=== PATIENT | male | born 1985 | race Caucasian/White ===

== ENCOUNTER 2016-09-23 04:12 | Inpatient (IN) | payer OTHER ==
[~2016-09-23] VITALS: Ht 177.8 cm; Wt 87.1 kg
[~2016-09-23 04:12] MED LIST: CEPALOZ SUCK-ON; IBUP-232 PO; PENI500T PO
[2016-09-23 04:21] VITALS: BP 137/90; PULSE 123
[2016-09-23] MEDS ORDERED: HALOPERIDOL LACTATE 5 MG/ML AMP ONE (04:23)
[2016-09-23] MEDS ORDERED: diphenhydrAMINE HCL 50 MG/ML VIAL ONE (04:23)
[2016-09-23] MEDS ORDERED: LORazepam 2 MG/ML VIAL ONE (04:24)
[2016-09-23 04:39] VITALS: PULSE 127
[2016-09-23] MEDS ORDERED: HALOPERIDOL LACTATE 5 MG/ML AMP IV ONE (04:45)
[2016-09-23] MEDS ORDERED: LORazepam 2 MG/ML VIAL IV PUSH ONE (04:45)
[2016-09-23] MEDS ORDERED: diphenhydrAMINE HCL 50 MG/ML VIAL IV PUSH ONE (04:45)
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
[2016-09-23 05:54] LABS: AUTOMATED NEUTROPHIL # 4.8 TH/MM3 (1.8-7.7); BASOPHIL # 0.1 TH/MM3 (0-0.2); BASOPHIL % 0.9 % (0.0-2.0); EOSINOPHIL % 0.5 % (0.0-4.0); HEMO FLAGS DIFF FINAL; LYMPH % 29.1 % (9.0-44.0); LYMPHOCYTE # 2.3 TH/MM3 (1.0-4.8); MEAN CELL VOLUME 91.7 FL (80.0-100.0); MEAN CORPUSCULAR HEMOGLOBIN 32.4 PG (27.0-34.0); MEAN CORPUSCULAR HGB CONC 35.4 % (32.0-36.0); MONO % 7.8 % (0.0-8.0); NEUT % 61.7 % (16.0-70.0); PLATELET COUNT 276 TH/MM3 (150-450); RED BLOOD COUNT 4.47 MIL/MM3 (4.50-5.90); RED CELL DISTRIBUTION WIDTH 13.2 % (11.6-17.2); WHITE BLOOD COUNT 7.8 TH/MM3 (4.0-11.0)
[2016-09-23 06:07] LABS: ALT (GPT) 38 U/L (12-78); ANION GAP 13 MEQ/L (5-15); AST (GOT) 37 U/L (15-37); BICARBONATE 21.8 MEQ/L (21.0-32.0); CHLORIDE 108 MEQ/L (98-107); GLOMERULAR FILTRATION RATE 78 ML/MIN (>89); POTASSIUM 3.1 MEQ/L (3.5-5.1); SODIUM (NA) 143 MEQ/L (136-145)
[2016-09-23 06:11] LABS: ALKALINE PHOSPHATASE 66 U/L (45-117); BLOOD UREA NITROGEN 16 MG/DL (7-18); TOTAL BILIRUBIN ADULT 0.4 MG/DL (0.2-1.0)
[2016-09-23 07:07] LABS: AMPHETAMINE, URINE NEG (NEG); BARBITURATES, URINE NEG (NEG); COCAINE, URINE NEG (NEG)
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
[2016-09-23] MEDS ORDERED: MAGNESIUM HYDROXIDE SUSP 30 ML CUP PO PRN (11:30)
[2016-09-23] MEDS ORDERED: ACETAMINOPHEN 325 MG TAB PO PRN (11:30)
[2016-09-23 12:45] VITALS: BP 162/97; PULSE 97; RESP 18; O2SAT 98
[2016-09-23 13:10] LABS: AMPHETAMINE, URINE NEG (NEG); BARBITURATES, URINE NEG (NEG); COCAINE, URINE NEG (NEG)
[2016-09-23] MEDS ORDERED: LORazepam 1 MG TAB PO PRN (16:00)
[2016-09-23] MEDS ORDERED: FLUMAZENIL 0.5 MG/5 ML VIAL IV PUSH PRN (16:00)
[2016-09-23] MEDS ORDERED: LORazepam 2 MG/ML VIAL IM PRN ×4 (16:00)
[2016-09-23] MEDS ORDERED: LORazepam 2 MG TAB PO PRN (16:00)
[2016-09-23 18:15] VITALS: BP 149/89; PULSE 106; RESP 16; TEMP 99.3; O2SAT 99
[2016-09-24 06:13] VITALS: BP 145/72; PULSE 71; RESP 18; TEMP 97.6; O2SAT 99
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
[2016-09-24] MEDS: RIFAXIMIN 550 MG TAB PO SCH ×2 (07:45→11:40)
[2016-09-24] MEDS: FOLIC ACID 1 MG TAB PO SCH ×2 (09:23→09:25)
[2016-09-24] MEDS: THIAMINE HCL 100 MG TAB PO SCH ×2 (09:23→09:25)
[2016-09-24 10:22] LABS: ANION GAP 8 MEQ/L (5-15); BICARBONATE 27.6 MEQ/L (21.0-32.0); BLOOD UREA NITROGEN 13 MG/DL (7-18); CHLORIDE 103 MEQ/L (98-107); GLOMERULAR FILTRATION RATE 100 ML/MIN (>89); POTASSIUM 3.9 MEQ/L (3.5-5.1); SODIUM (NA) 139 MEQ/L (136-145)
[2016-09-24 10:30] LABS: HDL CHOLESTEROL 63.1 MG/DL (40.0-60.0); LDL CHOLESTEROL 55 MG/DL (0-99)
[2016-09-24] MEDS ORDERED: XIFA550T4 PO (11:03)
[2016-09-24] MEDS ORDERED: ZOLO100T PO (11:03)
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
[2016-09-24 18:02] LABS: HEMOGLOBIN A1a 1.2 %; HEMOGLOBIN A1b 0.7 %; HEMOGLOBIN Ao 86.4 %; HEMOGLOBIN F 0.7 %; HEMOGLOBIN P3 3.7 %
== END 2016-09-24 13:30 | disposition home or self-care (01) | DRG 882 ==
LOC: NEPE 04:12 → NEDA 10:57 → H270 12:22
PROVIDERS: ADMIT Psychiatry & Neurology Psychiatry; ATTEND Psychiatry & Neurology Psychiatry
DX: F43.20 Adjustment disorder, unspecified (principal); Z78.1 Physical restraint status; F10.10 Alcohol abuse, uncomplicated; F43.12 Post-traumatic stress disorder, chronic; Y90.6 Blood alcohol level of 120-199 mg/100 ml; F12.90 Cannabis use, unspecified, uncomplicated; Z72.0 Tobacco use; Z62.810 Personal history of physical and sexual abuse in childhood
CPT/HCPCS: 80048; 80053; 80061; 80307; 83036; 85025; 96374; 96375; G0481; J1200; J1630; J2060

== ENCOUNTER 2016-09-29 22:30 | Emergency (ER) | payer OTHER ==
[~2016-09-29 22:30] MED LIST changes: -CEPALOZ SUCK-ON; -IBUP-232 PO; -PENI500T PO; +XIFA550T4 PO; +ZOLO100T PO
[2016-09-29] MEDS ORDERED: OLANZapine IM 10 MG VIAL IM ONE ×2 (22:37→22:45)
[2016-09-29] MEDS ORDERED: diphenhydrAMINE HCL 50 MG/ML VIAL IM ONE (22:45)
[2016-09-29] MEDS ORDERED: LORazepam 2 MG/ML VIAL IM ONE (22:45)
[2016-09-29 23:16] VITALS: BP 199/98; PULSE 121; RESP 19; O2SAT 99
--- NOTE | 2016-09-29 23:17 | PD ---
HPI Chief Complaint: Psychiatric Symptoms Time Seen by Provider: 23:13 Travel History International Travel<30 days: No Contact w/Intl Traveler<30days: No History of Present Illness HPI Patient is a 30-year-old male presents emergency department for evaluation under [place] act. Patient has been in this facility before and has known violent tendencies. Apparently a third republican who is a [place] police lieutenant and a friend of the patient states that he's been off of his medications and not acting himself. He was placed under [place] act by law enforcement. Transported here with SWAT reinforcement. Another provider had ordered sedating medications for the patient. He received these medications prior to my assessment. The patient currently is soundly sleeping but having movements of all 4 extremities. He will not answering my questions at this time. PFSH Past Medical History Bipolar Disorder: Yes Anxiety: Yes Depression: Yes Cancer: No Cardiovascular Problems: No Diabetes: No Diminished Hearing: No Endocrine: No Genitourinary: No Headaches: Yes Musculoskeletal: No Neurologic: No Psychiatric: Yes Respiratory: No Schizophrenia: Yes Seizures: No Social History Alcohol Use: No Tobacco Use: Yes (1PK/WK) Substance Use: Yes (POT) Allergies-Medications (Allergen,Severity, Reaction): Coded Allergies: Lidocaine (Verified Adverse Reaction, Intermediate, rash,swelling on skin , 09/29/16) lidocaine patch. Reported Meds & Prescriptions Reported Meds & Active Scripts Active Zoloft (Sertraline HCl) 100 Mg Tab 100 Mg PO HS 0 Days Order is to update med rec only. Patient has adequate supply. Xifaxan (Rifaximin) 550 Mg Tab 550 Mg PO DAILY@06,12,18 0 Days Order is to update med rec only. Patient has adequate supply. Review of Systems Except as stated in HPI: all other systems reviewed are Neg Physical Exam Narrative GENERAL: Well-developed well-nourished, sleeping soundly. SKIN: No rash no wound on his person. No bruising. Moist skin. HEAD: Atraumatic. Normocephalic. EYES: Pupils equal and round. No scleral icterus. No injection or drainage. ENT: No nasal bleeding or discharge. NECK: Trachea midline. No JVD. CARDIOVASCULAR: Mild tachycardic with regular rhythm. No murmur appreciated. RESPIRATORY: No accessory muscle use. Clear to auscultation. Breath sounds equal bilaterally. GASTROINTESTINAL: Abdomen soft, non-tender, nondistended. Hepatic and splenic margins not palpable. MUSCULOSKELETAL: No midline CT or L-spine step-off, pelvis stable, extremities appear atraumatic.. NEUROLOGICAL: Sleeping soundly, difficult to arouse, moving all 4 extremities but not following my commands. Think his lack of following my commands is psychogenic in nature. PSYCHIATRIC: Unable to assess Data Data Last Documented VS Vital Signs Date Time Temp Pulse Resp B/P Pulse Ox O2 Delivery O2 Flow Rate FiO2 09/29/16 23:16 121 19 199/98 99 Room Air Orders Olanzapine Inj (Zyprexa Inj) (09/29/16 22:45) Diphenhydramine Inj (Benadryl Inj) (09/29/16 22:45) Lorazepam Inj (Ativan Inj) (09/29/16 22:45) Olanzapine Inj (Zyprexa Inj) (09/29/16 22:37) Complete Blood Count With Diff (09/29/16 23:13) Comprehensive Metabolic Panel (09/29/16 23:13) Cath For Specimen (09/29/16 23:13) Psych Screen (09/29/16 23:13) Drug Screen, Random Urine (09/29/16 23:13) Alcohol (Ethanol) (09/29/16 23:13) Salicylates (Aspirin) (09/29/16 23:13) Tylenol (Acetaminophen) (09/29/16 23:13) Restraints Violent (09/29/16 23:13) Diet Regular Basic (09/30/16 Breakfast) Labs Laboratory Tests Test 09/30/16 01:00 White Blood Count 9.0 TH/MM3 Red Blood Count 4.49 MIL/MM3 Hemoglobin 14.3 GM/DL Hematocrit 42.1 % Mean Corpuscular Volume 93.7 FL Mean Corpuscular Hemoglobin 31.9 PG Mean Corpuscular Hemoglobin 34.1 % Concent Red Cell Distribution Width 13.4 % Platelet Count 265 TH/MM3 Mean Platelet Volume 7.6 FL Neutrophils (%) (Auto) 66.0 % Lymphocytes (%) (Auto) 24.0 % Monocytes (%) (Auto) 7.9 % Eosinophils (%) (Auto) 1.4 % Basophils (%) (Auto) 0.7 % Neutrophils # (Auto) 6.0 TH/MM3 Lymphocytes # (Auto) 2.2 TH/MM3 Monocytes # (Auto) 0.7 TH/MM3 Eosinophils # (Auto) 0.1 TH/MM3 Basophils # (Auto) 0.1 TH/MM3 CBC Comment DIFF FINAL Differential Comment Sodium Level 144 MEQ/L Potassium Level 4.0 MEQ/L Chloride Level 109 MEQ/L Carbon Dioxide Level 26.9 MEQ/L Anion Gap 8 MEQ/L Blood Urea Nitrogen 12 MG/DL Creatinine 0.92 MG/DL Estimat Glomerular Filtration 97 ML/MIN Rate Random Glucose 98 MG/DL Calcium Level 8.6 MG/DL Total Bilirubin 0.3 MG/DL Aspartate Amino Transf 21 U/L (AST/SGOT) Alanine Aminotransferase 31 U/L (ALT/SGPT) Alkaline Phosphatase 62 U/L Total Protein 7.5 GM/DL Albumin 4.2 GM/DL Salicylates Level LESS THAN 1.7 MG/DL Urine Opiates Screen NEG Acetaminophen Level LESS THAN 2.0 MCG/ML Urine Barbiturates Screen NEG Urine Amphetamines Screen NEG Urine Benzodiazepines Screen NEG Urine Cocaine Screen NEG Urine Cannabinoids Screen POS Ethyl Alcohol Level 57 MG/DL MDM Medical Decision Making Medical Screen Exam Complete: Yes Emergency Medical Condition: Yes Differential Diagnosis Psychosis, intoxication, poor social circumstance. Narrative Course Patient roomed in the emergency department, extreme cautions been uses patient is been known to have violent behavior in the past. The patient did not require restraints before the end of my shift at 0100. After allowing patient' s sedation medications to take effect to the patient was straight catheter and blood work was drawn. The patient has no evidence of trauma on his person, mildly tachycardic and mildly diaphoretic I strongly suspect the use of stimulant medications tonight. Review the patient's labs showed no concerning abnormality. There is no evidence trauma to his person. He is medically stable for psychiatric evaluation and disposition. He is on Ward act. Diagnosis Primary Impression: Psychosis Condition: Stable Jack Almeida MD Sep 29, 2016 23:17
[2016-09-30 01:31] LABS: AMPHETAMINE, URINE NEG (NEG); BARBITURATES, URINE NEG (NEG); BASOPHIL # 0.1 TH/MM3 (0-0.2); BASOPHIL % 0.7 % (0.0-2.0); COCAINE, URINE NEG (NEG); EOSINOPHIL # 0.1 TH/MM3 (0-0.4); EOSINOPHIL % 1.4 % (0.0-4.0); HEMATOCRIT 42.1 % (39.0-51.0); HEMO FLAGS DIFF FINAL; LYMPHOCYTE # 2.2 TH/MM3 (1.0-4.8); MEAN CELL VOLUME 93.7 FL (80.0-100.0); MEAN CORPUSCULAR HEMOGLOBIN 31.9 PG (27.0-34.0); MEAN CORPUSCULAR HGB CONC 34.1 % (32.0-36.0); MONO % 7.9 % (0.0-8.0); PLATELET COUNT 265 TH/MM3 (150-450); RED BLOOD COUNT 4.49 MIL/MM3 (4.50-5.90); RED CELL DISTRIBUTION WIDTH 13.4 % (11.6-17.2)
[2016-09-30 01:51] LABS: ANION GAP 8 MEQ/L (5-15)
[2016-09-30 01:58] LABS: ALKALINE PHOSPHATASE 62 U/L (45-117); ALT (GPT) 31 U/L (12-78); AST (GOT) 21 U/L (15-37); BICARBONATE 26.9 MEQ/L (21.0-32.0); BLOOD UREA NITROGEN 12 MG/DL (7-18); CHLORIDE 109 MEQ/L (98-107); GLOMERULAR FILTRATION RATE 97 ML/MIN (>89); SODIUM (NA) 144 MEQ/L (136-145); TOTAL BILIRUBIN ADULT 0.3 MG/DL (0.2-1.0)
[2016-09-30 01:59] LABS: ACETAMINOPHEN LESS THAN 2.0 MCG/ML (10.0-30.0)
[2016-09-30 02:00] VITALS: BP 149/81; PULSE 115; RESP 18; O2SAT 98
[2016-09-30] MEDS ORDERED: SERO50TA PO (12:28)
[2016-09-30] MEDS ORDERED: DIVA250T3 PO (12:28)
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
== END 2016-09-30 14:44 | disposition home or self-care (01) ==
LOC: NEPJ 22:30
DX: F29 Unspecified psychosis not due to a substance or known physiological condition (principal); R00.0 Tachycardia, unspecified; F31.9 Bipolar disorder, unspecified; F20.9 Schizophrenia, unspecified; F41.9 Anxiety disorder, unspecified; F17.200 Nicotine dependence, unspecified, uncomplicated; Z79.899 Other long term (current) drug therapy
CPT/HCPCS: 80053; 80307; 85025; 96372; 99285; J1200; J2060; P9612